=== PATIENT | female | born 1945 | race Asian ===

== ENCOUNTER 2018-10-26 23:44 | Emergency (ER) | payer OTHER ==
[~2018-10-26] VITALS: Ht 149.9 cm; Wt 45.4 kg
[2018-10-26 23:54] VITALS: Ht 149.9 cm; Wt 45.4 kg
[2018-10-27 00:33] VITALS: BP 110/52
== END 2018-10-27 00:33 | disposition home or self-care (01) ==
LOC: ED 23:44
DX: K91.840 Postprocedural hemorrhage of a digestive system organ or structure following a digestive system procedure (principal)